=== PATIENT | male | born 1945 | race Caucasian/White ===

== ENCOUNTER 2018-07-31 10:13 | Day surgery (SDC) | payer MEDICARE ==
[~2018-07-31] VITALS: Ht 180.3 cm; Wt 116.5 kg
[2018-07-31] VITALS (8 sets, daily range): BP systolic 134–171; BP diastolic 72–94
[2018-07-31] MEDS ORDERED: sod bicarbonate 150mEq in D5W 1,150 ML IV ONE (10:35)
[2018-07-31] MEDS ORDERED: diphenhydrAMINE 25mg capsule PO PRN (10:35)
[2018-07-31] MEDS ORDERED: POTA20TA10 PO (10:54)
[2018-07-31] MEDS ORDERED: ASPI81TA52 PO (10:54)
[2018-07-31] MEDS ORDERED: OMEP40CA37 PO (10:54)
[2018-07-31] MEDS ORDERED: FURO-150 PO (10:54)
[2018-07-31] MEDS ORDERED: LOSA1TAB36 PO (10:54)
[2018-07-31] MEDS ORDERED: LORA1TAB PO (10:54)
[2018-07-31] MEDS ORDERED: ATOR80TA PO (10:54)
[2018-07-31] MEDS ORDERED: METO50TA7 PO (10:54)
[2018-07-31] MEDS ORDERED: normal saline 1000ml 1,000 ML IV SCH (10:55)
[2018-07-31 11:36] LABS: BASOPHILS % (AUTO) 0.4 % (0-1); EOSINOPHILS # (AUTO) 0.2 X10'3 (0-0.9); EOSINOPHILS % (AUTO) 2.2 % (0-6); LYMPHOCYTES # (AUTO) 2.4 X10'3 (1.1-4.8); MEAN CORPUSCULAR HEMOGLOBIN 30.6 PG (27.0-31.0); MEAN CORPUSCULAR HGB CONC 33.6 % (33.0-36.5); MEAN CORPUSCULAR VOLUME 91.1 FL (78-98); MEAN PLATELET VOLUME 10.2 FL (7.4-10.4); MONOCYTES # (AUTO) 0.7 X10'3 (0-0.9); MONOCYTES % (AUTO) 7.6 % (2-12); NEUTROPHILS # (AUTO) 5.4 X10'3 (1.8-7.7); NEUTROPHILS % (AUTO) 61.8 % (42-75); PRE OP HEMATOCRIT 45.4 % (42.0-52.0); PRE OP HEMOGLOBIN 15.2 g/dL (14.0-17.9); PRE OP PLATELET COUNT 199 X10'3 (140-440); RED BLOOD COUNT 4.98 X10'6 (4.70-6.10); RED CELL DISTRIBUTION WIDTH 13.5 % (11.5-14.5)
[2018-07-31 11:41] LABS: PROTHROMBIN TIME 10.1 SECONDS (9.0-12.0)
[2018-07-31 11:46] LABS: ALBUMIN 3.8 G/DL (3.4-5.0); ANION GAP 7 (8-16); BLOOD UREA NITROGEN 12 MG/DL (7-18); BUN/CREATININE RATIO 11.7 (5.4-32.0); CALCIUM 8.9 MG/DL (8.5-10.1); CHLORIDE 102 MMOL/L (99-107); CREATININE 1.03 MG/DL (0.60-1.10); GLUCOSE 100 MG/DL (70-104); MAGNESIUM 1.9 MG/DL (1.5-2.4); SODIUM 138 MMOL/L (135-145); TOTAL CARBON DIOXIDE 28.8 MMOL/L (24-32); eGFR 71 ML/MIN
[2018-07-31] MEDS ORDERED: LIDOcaine 1% 30ml preserv. free vial ONE (13:05)
[2018-07-31] MEDS ORDERED: iohexol 350 MG/ML 50ML vial IV ONE (13:05)
[2018-07-31] MEDS ORDERED: iohexol 350 MG/1 ML 200ml bottle ONE (13:05)
[2018-07-31] MEDS ORDERED: midazolam 2 mg/2 ml injection ONE (13:14)
[2018-07-31] MEDS ORDERED: fentaNYL/PF 50MCG/1 ML 2ML syringe ONE (13:14)
[2018-07-31] MEDS ORDERED: proCHLORperazine 10 MG/2 ml inj ONE (13:30)
[2018-07-31] MEDS ORDERED: heparin 1,000unit/ml 10ml vial 10 ML ONE (14:12)
[2018-07-31] MEDS ORDERED: clopidogrel 300mg tablet ONE (14:41)
[2018-07-31] MEDS ORDERED: normal saline 1000ml 1,000 ML IV ONE (15:30)
== END 2018-07-31 18:10 | disposition home or self-care (01) ==
LOC: SSTAY O 10:13
PROVIDERS: ATTEND Internal Medicine Cardiovascular Disease
DX: I25.810 Atherosclerosis of coronary artery bypass graft(s) without angina pectoris (principal); I70.292 Other atherosclerosis of native arteries of extremities, left leg; I45.2 Bifascicular block; I25.5 Ischemic cardiomyopathy; J44.9 Chronic obstructive pulmonary disease, unspecified; F17.210 Nicotine dependence, cigarettes, uncomplicated; I35.0 Nonrheumatic aortic (valve) stenosis; E78.5 Hyperlipidemia, unspecified; I10 Essential (primary) hypertension; K21.9 Gastro-esophageal reflux disease without esophagitis; N40.1 Benign prostatic hyperplasia with lower urinary tract symptoms; Z79.82 Long term (current) use of aspirin; Z86.74 Personal history of sudden cardiac arrest; Z87.442 Personal history of urinary calculi; Z90.79 Acquired absence of other genital organ(s); Z95.828 Presence of other vascular implants and grafts; Z72.89 Other problems related to lifestyle; Z95.1 Presence of aortocoronary bypass graft; Z95.2 Presence of prosthetic heart valve; Z95.5 Presence of coronary angioplasty implant and graft; Z98.52 Vasectomy status; Z98.890 Other specified postprocedural states; Z79.899 Other long term (current) drug therapy; Z82.49 Family history of ischemic heart disease and other diseases of the circulatory system
CPT/HCPCS: 36415; 37224; 80048; 83735; 85025; 85610; 93005; 93459; 93567; 99152; 99153; A6257; C1725; C1760; C1769; C1894; C2623; J0780; J1644; J2250; J3010; J3490; J7030; Q0163; Q9967; A4620